=== PATIENT | male | born 1970 | race Caucasian/White ===

== ENCOUNTER 2023-08-22 18:15 | Emergency (ER) | payer BC, SELFPAY ==
[2023-08-22 18:16] VITALS: BP 134/85; PULSE 67; RESP 16; TEMP 36.6; O2SAT 97; BMI 30.2
[2023-08-22] MEDS: fluorescein 1 mg Strip EYE-LEFT (18:36)
[2023-08-22] MEDS: eye irrigation 30 mL Btl EYE-BOTH (18:36)
--- NOTE | 2023-08-22 19:04 | W.ED.EYEPROB ---
HPI - Eye Problem General: Chief complaint: Eye Problems Stated complaint: Eye injury Time Seen by Provider: 08/22/23 18:25 Source: patient Mode of arrival: ambulatory Limitations: no limitations History of Present Illness: Patient is a 52-year-old male who presents to the emergency department due to eye irritation onset prior to arrival. Patient states he was hit in the left eye with a tree branch, and this caused his contact lens to shatter. He notes that he has a special type of lens that is essentially hard plastic for his astigmatism. He thinks that he may have gotten the contact completely out, though is ultimately unsure due to the increasing pain. In triage he is clutching his left thigh, and states he cannot open it due to the pain. No other symptoms to report at this time. MD chief complaint: eye pain and eye injury Onset (ago): minute(s) Onset description: sudden Duration: constant Location: left eye Eye Symptoms: burning and pain Place: street/outdoors Mechanism: direct trauma Severity: severe Severity scale (1-10): 10 If Pain, Quality: sharp Associated symptoms: Denies fever(s), headache(s), nausea, neck pain or vomiting Review of Systems General: Reports: 10 or more systems reviewed and unremarkable except in HPI and below Const: Denies: fever(s), chills or fatigue Eyes: Reports: change in vision, eye discomfort and eye redness ENMT: Denies: throat pain, ear or mastoid pain or nasal discharge Card: Denies: chest pain, palpitations, swelling of feet/ankles or lightheadedness Resp: Denies: dyspnea, productive cough or wheezing GI: Denies: abdominal pain, nausea, vomiting, diarrhea or constipation : Denies: flank pain, difficulty urinating, dysuria or urinary frequency Musc: Denies: neck pain, back pain or joint pain Skin/Breast: Denies: rash Neuro: Denies: headache(s), numbness in extremities or weakness in extremities Physical Exam Const: COMMON NORMALS: no acute distress, patient oriented x3 and no limitations GENERAL APPEARANCE: cooperative, comfortable and well developed ORIENTATION/CONSCIOUSNESS: Yes awake, Yes oriented to person, Yes oriented to place and Yes oriented to time HENMT: COMMON NORMALS: normocephalic, atraumatic and hearing grossly normal bilaterally HEAD & SCALP: normocephalic and atraumatic Eye: SLIT LAMP EXAM: Yes slit lamp exam performed with fluorescein, Yes conjunctiva/sclera Conjunctiva/sclera details: diffuse conjunctiva injection, Yes cornea Cornea details: other (Diffuse corneal abrasion) and Yes lens Lens details: clear OTHER: Diffuse corneal injection, no obvious signs of foreign body or contact lens. Right eye negative with contact in place. Neck/C-Spine: COMMON NORMALS: full ROM, supple and no JVD Resp: COMMON NORMALS: normal respiratory effort, No retractions, No use of accessory muscles and clear to auscultation bilaterally AUSCULTATION: clear to auscultation bilaterally Cardio: COMMON NORMALS: no JVD, regular rate, regular rhythm, No clicks present (Cardio), No murmurs present (Cardio) and No rub (Cardio) RATE: regular rate RHYTHM: regular rhythm Extremity: COMMON NORMALS: normal to inspection, full ROM and capillary refill normal Neuro: COMMON NORMALS: patient oriented x3, moves all extremities, no focal motor deficits and no sensory deficits noted SENSORIUM/ORIENTATION: Yes oriented to person, Yes oriented to place and Yes oriented to time Psych: COMMON NORMALS: mental status grossly normal and Normal thought process present THOUGHT PROCESS: Normal thought process present Skin: COMMON NORMALS: no rashes or lesions noted GENERAL SKIN EXAM: no rashes or lesions noted Course Vital Signs: Vital signs: Vital Signs Temperature 97.9 F 08/22/23 18:16 Pulse Rate 67 08/22/23 18:16 Respiratory Rate 16 08/22/23 18:16 Blood Pressure 134/85 08/22/23 18:16 Pulse Oximetry 97 08/22/23 18:16 Oxygen Delivery Me thod Room Air 08/22/23 18:16 MDM - Eye Problem Medical Decision Making Patient arrives with left eye injury after being struck with a branch. He thinks that his contact lens was dislodged. Slit-lamp examination did not warrant signs of retained products of the contact lens, though there was a diffuse corneal abrasion uptake of fluorescein. He does note improvement after receiving tetracaine and we will prescribe Maxitrol. His preconstruction manager is here in [place] who he will follow-up with tomorrow morning. Reasons to return were discussed. Care of patient was discussed and assisted by supervising ED physician, Dr. Wise. No radiology studies performed this visit Discharge Plan Discharge Patient Disposition: Home Clinical Impression: Corneal abrasion Condition: Stable Prescriptions: New Maxitrol 3.5mg/mL-10,000 unit/mL-0.1 % drops,suspension 2 drp ophthalmic (eye) Q6H Qty: 5 0RF Discharge Orders: Discharge ED (Routine); Ordered 08/22/23 Ordered By: Rashaun Wade Referrals: ySd Cantu MD [Primary Care Provider] - Discharge Diet: Usual diet Discharge Activity: Increase activity as tolerated Patient Instructions: Corneal Abrasion (ED) Activity Restrictions/Additional Instructions: Maxitrol as prescribed. Follow-up with Dr. Weathers tomorrow as discussed. Please return if you develop any new or worsening symptoms. Coding Level of Care Code ED [employer] for An Fitzpatrick
[2023-08-22] MEDS: neomycin-poly-dex Op 5 mL Btl 2 DROP EYE-LEFT (19:18)
[2023-08-22 19:20] VITALS: BP 117/83; PULSE 60; O2SAT 96
[2023-08-22 19:22] VITALS: BP 117/83; PULSE 60; O2SAT 96
== END 2023-08-22 19:22 | disposition home or self-care (01) ==
PROVIDERS: Emergency Provider Physician Assistant; PCP Family Medicine
DX: H18.822 Corneal disorder due to contact lens, left eye (principal)
CPT/HCPCS: 99283

== ENCOUNTER 2023-10-12 13:44 | Outpatient (CLI) | payer BC, SELFPAY ==
--- NOTE | 2023-10-12 14:00 | CT_ITS ---
WS: [id number] LDCT LUNG CANCER SCREENING TECHNIQUE: Noncontrast CT of the chest with coronal and sagittal reformatted images. CLINICAL INFORMATION: Cancer Screen COMPARISON: None. DLP: 78.21 mGy.cm DIvol: Mean CTDIvol: 1.60 (mGy) All CT scans at [facility] use at least one of these dose optimization techniques: automat ed exposure control; mA and/or kV adjustment per patient size (includes targeted exams where dose is matched to clinical indication); or iterative reconstruction. FINDINGS: Tiny noncalcified nodule LEFT lower lobe. No other suspicious pulmonary parenchymal abnorma lities. Tiny calcified granuloma LEFT lower lobe. Normal caliber thoracic aorta. No mediastinal or hilar lymphadenopathy. Adrenal glands are normal. Ti ny low-attenuation lesion in the dome of the liver likely hepatic cyst but too small to definitively characterize. Fluid distended stomach. Mild thoracic curve. CT/CT lung screening [id number] IMPRESSION: LUNG-RADS: 2-Benign Appearance or Behavior FOLLOW UP: 12 Month: Continue annual screening with LDCT
== END 2023-10-12 13:45 | disposition home or self-care (01) ==
LOC: RAD 13:44
PROVIDERS: PCP Family Medicine; Visit Provider Internal Medicine Critical Care Medicine
DX: Z87.891 Personal history of nicotine dependence (principal); R91.8 Other nonspecific abnormal finding of lung field
CPT/HCPCS: 71271

== ENCOUNTER 2023-10-25 06:54 | Outpatient (CLI) | payer BC, SELFPAY | END 2023-10-25 06:55 | disposition home or self-care (01) | PROVIDERS: PCP Family Medicine; Visit Provider Internal Medicine Critical Care Medicine | DX: R06.09 Other forms of dyspnea (principal) | CPT/HCPCS: 94010; 94726; 94729 ==

== ENCOUNTER 2024-12-13 06:41 | Outpatient (CLI) | payer BC, SELFPAY ==
--- NOTE | 2024-12-13 06:51 | CT_ITS ---
WS: [id number] LDCT LUNG CANCER SCREENING HISTORY: NICOTINE DEPENDENCE TECHNIQUE: Axial imaging performed from the apices to 1 cm below the costophrenic angles. Coronal and sagittal reformats are submitted with axial MIP series. All CT scans at [facility] use at least one of these dose optimization techniques: automated exposure control; mA and/or kV adjustment per patient size (includes targeted exams where dose is matched to clinical indication); or iterative reconstruction. DLP: 70.07 mGy.cm DIvol: Mean CTDIvol: 1.10 (mGy) COMPARISON: 10/12/2023 Diagnostic quality: Satisfactory Lungs: Small cluster of nodules in their entirety measuring 3 mm RIGHT upper lobe, image 80 series 5. 2 mm nodule LEFT lower lobe was previously described and may be calcified now. No endobronchial lesions. Heart: Normal size heart with no pericardial effusion.. Other findings: No mediastinal or hilar adenopathy. Normal size aorta. No pericardial or pleural effusions. No change in appearance of the upper abdomen. Very mild thoracic spondylosis. No rib abnormalities. CT/CT lung screening [id number] IMPRESSION: LUNG-RADS: 2-Benign Appearance or Behavior FOLLOW UP: 12 Month: Continue annual screening with LDCT OTHER FINDINGS (S MODIFIER): None.
== END 2024-12-13 06:42 | disposition home or self-care (01) ==
LOC: RAD 06:43
PROVIDERS: PCP Family Medicine; Visit Provider Family Medicine
DX: Z12.2 Encounter for screening for malignant neoplasm of respiratory organs (principal); F17.200 Nicotine dependence, unspecified, uncomplicated; R91.8 Other nonspecific abnormal finding of lung field
CPT/HCPCS: 71271